=== PATIENT | female | born 1985 | race Caucasian/White ===

== ENCOUNTER → 2017-12-29 | Outpatient (CLI) | payer SELFPAY ==
--- NOTE | 2017-12-29 12:06 | Diagnostic Imaging Report ---
PROCEDURE: US Non-ob pelvis comp/trans. TECHNIQUE: Multiple realtime grayscale images were obtained of the pelvis in various projections endovaginally. Transabdominal imaging was also performed. INDICATION: Back pain and amenorrhea. The uterus measures 8.5 x 4.6 x 5.2 cm. No myometrial mass is identified. The endometrium is 18 mm in thickness. There are cervical nabothian cysts present. The left ovary was obscured by bowel gas. Right ovary measures 5.9 x 6.2 x 3.8 cm, contains an approximately 4 cm cyst. There is blood flow to the right ovary. There is a small amount of free fluid adjacent to the right ovary. IMPRESSION: A 4 cm right ovarian cyst. No other significant abnormality is detected. Dictated by: Dictated on workstation # [id number]
== END ==
LOC: RAD 09:48
PROVIDERS: ATTEND Nurse Practitioner Family
DX: N83.201 Unspecified ovarian cyst, right side (principal); M54.9 Dorsalgia, unspecified
CPT/HCPCS: 76830; 76856